=== PATIENT | female | born 1990 | race Caucasian/White ===

== ENCOUNTER 2017-01-29 02:05 | Inpatient (IN) | payer OTHER ==
[2017-01-29] MEDS ORDERED: AMPICILLIN - 100 ML IVPB ONE (02:35)
[2017-01-29] MEDS ORDERED: DEXTROSE 5%-LACTATED RINGERS 1,000 ML IV SCH (02:35)
[2017-01-29 03:36] LABS: BASOPHIL 0.6 % (0-2.0); EOSINOPHIL 0.4 % (0-4.5); MCH 30.5 pg (25.7-33.7); MCHC 32.8 g/dl (32.0-36.0); MEAN PLT VOLUME 10.2 fl (7.5-11.1); NEUTROPHILS 79.5 % (42.8-82.8); PLATELET COUNT 255 K/MM3 (134-434); RDW 13.7 % (11.6-15.6); WHITE BLOOD COUNT 11.9 K/mm3 (4.0-10.0)
[2017-01-29 03:56] LABS: INR 0.99 (0.82-1.09); PROTHROMBIN TIME (PATIENT) 10.9 SEC (9.98-11.88)
[2017-01-29 04:03] VITALS: BMI 31.5
[2017-01-29 04:06] LABS: ANION GAP 8 (8-16); CALCIUM 8.9 mg/dL (8.5-10.1); CO2 25 mmol/L (21-32); CREATININE 0.5 mg/dL (0.55-1.02); GLUCOSE,RANDOM 96 mg/dL (74-106)
[2017-01-29] MEDS ORDERED: AMPICILLIN - 100 ML IVPB SCH (06:35)
[2017-01-29] MEDS: AMPICILLIN - 100 ML IVPB SCH ×4 (07:30→19:20)
[2017-01-29] MEDS ORDERED: FENTANYL/BUPIVACAINE/NS/PF - PCEA - 50 ML DISP.SYRIN EP SCH (07:30)
[2017-01-29] MEDS: ELECTROLYTE-148 SOLN 1,000 ML IV SCH ×3 (08:00→20:30)
[2017-01-29] MEDS ORDERED: TUBERCULIN PPD 5 TU/0.1ML SYRINGE (IN PATIENT USE ONLY) ID ONE (08:30)
--- NOTE | 2017-01-29 13:27 | HP ---
Past Medical History - Primary Care Physician PCP:: Celeste Negro - Admission Chief Complaint: 26yo P0 @ 39.5wks with contractions, no VB, no LOF, + FM History Source: Patient Limitations to Obtaining History: No Limitations - Past Medical History ...: 1 ...Para: 0 ...Term: 0 ...: 0 ...Spon : 0 ...Induced : 0 ...Multiple Gestation: 0 ...LMP: 04/26/16 ... Weeks Gestation by Dates: 39.5 ...EDC by Dates: 01/31/17 ...EDC by Sono: 01/31/17 - Past Surgical History Past Surgical History: Yes: None Hx Myomectomy: No Hx Transabdominal Cerclage: No - Smoking History Smoking history: Never smoked Have you smoked in the past 12 months: No - Alcohol/Substance Use Hx Alcohol Use: No History of Substance Use: reports: None Home Medications - Allergies Allergies/Adverse Reactions: Allergies Allergy/AdvReac Type Severity Reaction Status Date / Time No Known Allergies Allergy Verified 06/05/16 11:54 - Home Medications Home Medications: Ambulatory Orders Vit/Iron Fumarate/FA [ Tablet] 1 tab PO DAILY 01/29/17 Review of Systems - Review of Systems Constitutional: reports: No Symptoms Eyes: reports: No Symptoms HENT: reports: No Symptoms Neck: reports: No Symptoms Cardiovascular: reports: No Symptoms Respiratory: reports: No Symptoms Gastrointestinal: reports: No Symptoms Genitourinary: reports: No Symptoms Breasts: reports: No Symptoms Reported Musculoskeletal: reports: No Symptoms Integumentary: reports: No Symptoms Neurological: reports: No Symptoms Hematology/Lymphatic: reports: No Symptoms Psychiatric: reports: No Symptoms Physical Exam - Maternity Vital Signs: Vital Signs Temperature 98.0 F 01/29/17 13:00 Pulse Rate 97 H 01/29/17 12:35 Respiratory Rate 18 01/29/17 12:35 Blood Pressure 106/62 01/29/17 12:35 O2 Sat by Pulse Oximetry (%) 99 01/29/17 12:35 Constitutional: Yes: Well Nourished Eyes: Yes: WNL HENT: Yes: WNL Neck: Yes: WNL Cardiovascular: Yes: WNL Lungs: Clear to auscultation Breast(s): Yes: WNL - Abdominal Exam/OB Fundal Height: 39 (EFW 7lb) Number of Fetuses: Single Presentation: Vertex Contractions: Yes Regularity: Regular Intensity: Mild/Mod Monitor Mode: External Heart Rate (range): 130's, + accels, no decels Heart Rate Location: Midline Category: I Accelerations: Uniform Decelerations: None - Vaginal Exam/OB Vaginal Bleediing: No Speculum Exam: No Dilatation (cm): 5 Effacement (%): 90 Amniotic Membrane Status: Ruptured Nitrazine Test: Positive Amniotic Fluid: Yes: Clear Presentation: Vertex/Position Station: -1 - Physical Exam Musculoskeletal: Yes: WNL Extremities: Yes: WNL Edema: No ...Motor Strength: WNL Psychiatric: Yes: WNL - Labs Lab Results: CBC, BMP 01/29/17 03:15 01/29/17 03:15 Assessment/Plan 26yo P0 @ 39.5wks in labor Admit to labor and delivery IVF, Labs Epidural for pain meds Start mild Pitocin augmentation MF status reassuring Anticipate
[2017-01-29] MEDS ORDERED: OXYTOCIN 15 UNITS/ LR 250 ML 250 ML IVPB SCH (13:30)
[2017-01-29] MEDS ORDERED: ELECTROLYTE-148 SOLN 1,000 ML IV SCH (16:30)
[2017-01-29] MEDS ORDERED: ELECTROLYTE-148 SOLN 1,000 ML IV ONE (16:30)
--- NOTE | 2017-01-29 19:44 | PN ---
Progress Note, Labor Vaginal Exam #1 Labor Exam Date: 01/29/17 Labor Exam Time: 19:30 Heart Rate (range): 130's mod varriability, + accels, - decels Dilatation: 9 Effacement (%): 100 Amniotic Membrane Status: Ruptured (clear fluid) Presentation: Vertex/Position (direct OA) Station: +1
[2017-01-29] MEDS ORDERED: BENZOCAINE 28 GM HEMORRHOIDAL OINTMENT TP PRN (22:53)
[2017-01-29] MEDS ORDERED: METHYLERGONOVINE MALEATE 0.2 MG/1 ML AMP IM PRN (22:53)
[2017-01-29] MEDS ORDERED: WITCH HAZEL 50% (TUCKS) 40 PAD/JAR PAD TP PRN (22:53)
[2017-01-29] MEDS ORDERED: BENZOCAINE 20% 57 GM BOTTLE TP PRN (22:53)
[2017-01-29] MEDS ORDERED: BISACODYL 10 MG SUPP.RECT RC PRN (22:53)
[2017-01-29] MEDS ORDERED: D5W-LR W/ 20 UNITS OXYTOCIN 1,000 ML IV SCH (23:00)
--- NOTE | 2017-01-29 23:00 | PN ---
Delivery - Delivery Vaginal Delivery: No Problems (Cord around the neck x 1) Type of Anesthesia: Epidural Episiotomy/Laceration: Right Mediolateral, 1st degree EBL (cc): 400 Delivery, Single - Stages of Labor Date 1st Stage Initiatied: 01/28/17 Time 1st Stage Initiated: 23:00 Date 2nd Stage Initiated: 01/29/17 Time 2nd Stage Initiated: 21:35 Date of Delivery: 01/29/17 Time of Delivery: 22:06 Date Placenta Delivered: 01/29/17 Time Placenta Delivered: 22:09 Placenta: Yes: Spontaneous - Condition of [place] Furnace Tender/Bakery Technician Present: No Infant Gender: Female Weight: 6 lb 2.08 oz Position: OA (direct) - 1 Minute Total Score: 8 5 Minutes Total Score: 8 - Feeding Plan Initial Plan: Elected not to breastfeed exclusively throughout hospitalization Benefits of Exclusively reinforced: Yes Remarks - Remarks Remarks: Uncomplicated vaginal head and shoulder delivery customary repair of perineum 2-0 Chromic and periuretheral 4-0 Chromic tears
[2017-01-30] MEDS: AMPICILLIN - 100 ML IVPB SCH (00:39)
[2017-01-30] MEDS: ACETAMINOPHEN 325 MG TABLET (FP) PO PRN ×2 (03:37→15:42)
[2017-01-30] MEDS: IBUPROFEN 600 MG TABLET (FP) PO PRN ×2 (03:38→15:41)
--- NOTE | 2017-01-30 07:10 | PN ---
Post Progress Note - Subjective Subjective: 26yo P1 now, s/p Post Day: 1 Type of Delivery: Vital Signs: Vital Signs Temperature 99.4 F 01/30/17 04:01 Pulse Rate 99 H 01/30/17 04:01 Respiratory Rate 20 01/30/17 04:01 Blood Pressure 134/60 01/30/17 04:01 O2 Sat by Pulse Oximetry (%) 100 01/29/17 22:05 Breast Exam: Yes: Soft Uterus: Yes: Fundus Firm Abdomen/GI: Yes: Abdomen soft Lochia: Yes: Rubra Lochia, amount: Small Extremities: Yes: Calves non-tender Perineum: Yes: Intact Activity: Ambulating - Labs Labs: CBC WBC 11.9 K/mm3 (4.0-10.0) H 01/29/17 03:15 RBC 3.46 M/mm3 (3.60-5.2) L 01/29/17 03:15 Hgb 10.6 GM/dL (10.7-15.3) L 01/29/17 03:15 Hct 32.2 % (32.4-45.2) L 01/29/17 03:15 MCV 93.0 fl (80-96) 01/29/17 03:15 MCHC 32.8 g/dl (32.0-36.0) 01/29/17 03:15 RDW 13.7 % (11.6-15.6) 01/29/17 03:15 Plt Count 255 K/MM3 (134-434) 01/29/17 03:15 MPV 10.2 fl (7.5-11.1) 01/29/17 03:15 Neutrophils % 79.5 % (42.8-82.8) 01/29/17 03:15 Lymphocytes % 12.8 % (8-40) 01/29/17 03:15 Monocytes % 6.7 % (3.8-10.2) 01/29/17 03:15 Eosinophils % 0.4 % (0-4.5) 01/29/17 03:15 Basophils % 0.6 % (0-2.0) 01/29/17 03:15 Assessment/Plan 26yo P1 now s/p Vss, Afibrile Doing well Pericare explained continue routine PP care Rh+ no need for RhoGam Plan d/c in am
[2017-01-30] MEDS: PRENATAL VITAMINS W/ FOLIC ACID TABLET (FP) PO SCH (09:15)
[2017-01-30] MEDS: FERROUS SO4 325 MG TABLET (FP) PO SCH ×2 (09:15→22:19)
[2017-01-30 09:34] LABS: MCH 30.8 pg (25.7-33.7); MEAN CELL VOLUME 93.1 fl (80-96); MEAN PLT VOLUME 9.5 fl (7.5-11.1); PLATELET COUNT 197 K/MM3 (134-434); RDW 13.7 % (11.6-15.6); WHITE BLOOD COUNT 25.2 K/mm3 (4.0-10.0)
[2017-01-30 11:08] LABS: PLATELET ESTIMATE ADEQUATE (NORMAL)
[2017-01-30 11:09] LABS: HYPOCHROMIA FEW
[2017-01-30] MEDS ORDERED: DIPHTH,PERTUSS(ACELL),TET 0.5 ML DISP.SYRIN IM ONE (18:00)
[2017-01-30] MEDS ORDERED: SENNOSIDES/DOCUSATE COMBO (SENNA PLUS) TABLET (UD) PO PRN (22:00)
[2017-01-31] MEDS: ACETAMINOPHEN 325 MG TABLET (FP) PO PRN ×2 (05:24→10:49)
[2017-01-31] MEDS: IBUPROFEN 600 MG TABLET (FP) PO PRN ×2 (05:25→10:50)
[2017-01-31 10:27] VITALS: BP 94/67; PULSE 88; TEMP 98.5
[2017-01-31] MEDS: FERROUS SO4 325 MG TABLET (FP) PO SCH (10:27)
[2017-01-31] MEDS: PRENATAL VITAMINS W/ FOLIC ACID TABLET (FP) PO SCH (10:27)
--- NOTE | 2017-01-31 11:39 | DS ---
Physical Exam-BODY MASKER Vital Signs: Vital Signs Temperature 98.5 F 01/31/17 10:25 Pulse Rate 88 01/31/17 10:25 Respiratory Rate 20 01/31/17 10:25 Blood Pressure 94/67 01/31/17 10:25 O2 Sat by Pulse Oximetry (%) 100 01/29/17 22:05 Labs: CBC, BMP 01/30/17 07:35 01/29/17 03:15 Delivery - Delivery Vaginal Delivery: No Problems (Cord around the neck x 1) Type of Anesthesia: Epidural Episiotomy/Laceration: Periurethral Extnsion/lac, Perineal Extension/lac, 1st degree EBL (cc): 400 Delivery, Single - Stages of Labor Date 1st Stage Initiatied: 01/28/17 Time 1st Stage Initiated: 23:00 Date 2nd Stage Initiated: 01/29/17 Time 2nd Stage Initiated: 21:35 Date of Delivery: 01/29/17 Time of Delivery: 22:06 Time Placenta Delivered: 22:09 Placenta: Yes: Spontaneous - Condition of Infant Canoe Maker/Document Specialist Present: No Gender: Female Weight: 6 lb 13 oz Position: OA Total Hours ROM (Hrs/Mins): [id number] - 1 Minute Total Score: 8 5 Minutes Total Score: 8 - Feeding Plan Initial Plan: Elected not to breastfeed exclusively throughout hospitalization Benefits of Exclusively reinforced: Yes Discharge Summary Reason For Visit: LABOR - Home Medications Comprehensive Discharge Medication List: Ambulatory Orders Vit/Iron Fumarate/FA [ Tablet] 1 tab PO DAILY 01/29/17
== END 2017-01-31 14:10 | disposition home or self-care (01) | DRG 775 ==
LOC: JLDR 02:05 → J3W 01-30 00:07
PROVIDERS: ADMIT Obstetrics & Gynecology; ATTEND Obstetrics & Gynecology
PROC: 0HQ9XZZ Repair Perineum Skin, External Approach (ICD-10-PCS; principal; 2017-01-29)
PROC: 10E0XZZ Delivery of Products of Conception, External Approach (ICD-10-PCS; 2017-01-29)
PROC: 0W8NXZZ Division of Female Perineum, External Approach (ICD-10-PCS; 2017-01-29)
DX: O70.0 First degree perineal laceration during delivery (principal); Z3A.39 39 weeks gestation of pregnancy; O69.81X0 Labor and delivery complicated by cord around neck, without compression, not applicable or unspecified; Z37.0 Single live birth
CPT/HCPCS: 36415; 59409; 80048; 85025; 85610; 85730; 86593; 86850; 86900; 86901; 90715